=== PATIENT | male | born 1995 | race Caucasian/White ===

== ENCOUNTER 2017-03-28 16:12 | Emergency (ER) | payer SELFPAY ==
[2017-03-28] MEDS ORDERED: Ibuprofen 800 MG Tab PO ONE (18:23)
--- NOTE | 2017-03-28 18:26 | EDM.PDOC ---
ED HPI GENERAL MEDICAL PROBLEM - General Chief Complaint: Lower Extremity Injury/Pain Stated Complaint: LEFT LEG PAIN WORK RELATED Time Seen by Provider: 03/28/17 18:15 Source of Information: Reports: Patient History Limitations: Reports: No Limitations - History of Present Illness INITIAL COMMENTS - FREE TEXT/NARRATIVE: HISTORY AND PHYSICAL: History of present illness: 22-year-old male no significant past history now complaining of left lateral thigh soreness after an injury yesterday. 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 It was mildly sore and that is more sore today. Per patient hurts worse with standing up and sitting down. He has no swelling or bruising patient is able to range of motion his hip and knee without any discomfort. Patient has no bone or bleeding problems. Review of systems: As per history of present illness and below otherwise all systems reviewed and negative. Past medical history: As per history of present illness and as reviewed below otherwise noncontributory. Surgical history: As per history of present illness and as reviewed below otherwise noncontributory. Social history: No reported history of drug or alcohol abuse. Family history: As per history of present illness and as reviewed below otherwise noncontributory. Physical exam: Well-appearing patient no acute distress left lateral thigh normal-appearing with no asymmetry or swelling. No hematoma or mass. Minimal soft tissue tenderness lateral aspect of left thigh in the mid femoral distribution. Neurovascularly intact distally with soft compartments normal color pulses and cap refill patient is smiling well-appearing HEENT: Normocephalic, atraumatic, pupils normal and symmetrical, supple neck, no meningismus, normal color Lungs: Normal and symmetrical chest wall excursion bilateral with no tachypnea or increased work of breathing, grossly normal chest exam Heart: No tachycardia in triage Abdomen: Normal-appearing, nondistended, no visible mass or asymmetry Pelvis: Normal-appearing Genitourinary: Deferred Rectal exam: Deferred Extremities: Atraumatic, normal use and range of motion, no visible evidence of gross neurovascular compromise Neuro: Awake, alert, oriented. Normal and appropriate mental status. Cranial nerves grossly unremarkable. Motor function normal. Nonfocal neurologic exam. Diagnostics: [] Therapeutics: [Ibuprofen by mouth] Impression: [Contusion left thigh] Plan: [Signs and symptoms consistent with mild contusion left thigh with no ecchymosis or hematoma.] Patient is well-appearing and there is no evidence of complication of this mild contusion. Ibuprofen given. No further workup or treatment indicated. Patient agrees with outpatient follow-up and strict return precautions given Definitive disposition and diagnosis as appropriate pending reevaluation and review of above. left thigh Pain Score (Numeric/FACES): 6 - Related Data Allergies Allergy/AdvReac Type Severity Reaction Status Date / Time Penicillins Allergy Hives Verified 03/28/17 16:43 Home Meds: Home Meds . [No Known Home Meds] 03/28/17 [History] Past Medical History - Past Health History Medical/Surgical History: Denies Medical/Surgical History HEENT History: Reports: Impaired Vision Other HEENT History: wears eyeglasses Social & Family History - Family History Family Medical History: Noncontributory - Tobacco Use Smoking Status *Q: Never Smoker - Recreational Drug Use Recreational Drug Use: No Review of Systems - Review of Systems Review Of Systems: See Below (History of present illness) ED EXAM, GENERAL - Physical Exam Exam: See Below (History of present illness) Course - Vital Signs Last Recorded V/S: Last Vital Signs Temp 37.0 C 03/28/17 16:12 Pulse 76 03/28/17 16:12 Resp 16 03/28/17 16:12 BP 130/64 03/28/17 16:12 Pulse Ox 97 03/28/17 16:12 Departure - Departure Time of Disposition: 18:23 Disposition: Home, Self-Care 01 Condition: Good Clinical Impression: Contusion of left thigh, Contusion of thigh - Discharge Information Referrals: PCP,None [Primary Care Provider] - Forms: ED Department Discharge Additional Instructions: You have a mild bruise of your left thigh. Apply ice as needed for the next day. Take ibuprofen 800 mg every 6 hours as well as Tylenol as needed for breakthrough pain. The aware it is likely to be sore while the contusion resolves. You can resume your normal activity as tolerated and follow-up with your doctor as needed. Return for new severe or worsening symptoms
[2017-03-29 01:14] VITALS: BP 130/73
== END 2017-03-28 18:40 | disposition home or self-care (01) ==
LOC: MW.ED 16:12
DX: S70.12XA Contusion of left thigh, initial encounter (principal); Z88.0 Allergy status to penicillin; W51.XXXA Accidental striking against or bumped into by another person, initial encounter; Y93.72 Activity, wrestling
CPT/HCPCS: 99282